=== PATIENT | male | born 1985 | race Caucasian/White ===

== ENCOUNTER 2024-11-20 19:59 | Emergency (ER) | payer MEDICAID ==
[~2024-11-20] VITALS: Ht 180.3 cm; Wt 104.5 kg
[2024-11-20 20:01] VITALS: BP 140/95; PULSE 93; RESP 19; O2SAT 98
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
== END 2024-11-20 20:21 ==
LOC: EDBD 20:01 → ER 20:01
DX: S70.312A Abrasion, left thigh, initial encounter (principal); F10.129 Alcohol abuse with intoxication, unspecified; Y90.9 Presence of alcohol in blood, level not specified; X58.XXXA Exposure to other specified factors, initial encounter; Y93.89 Activity, other specified; Y92.89 Other specified places as the place of occurrence of the external cause; Y99.8 Other external cause status
CPT/HCPCS: 99283